=== PATIENT | male | born 1970 | race Caucasian/White ===

== ENCOUNTER 2021-12-02 06:53 | Emergency (ER) | payer OTHER | END 2021-12-02 07:55 | disposition home or self-care (01) | LOC: FB.ED 06:53 | DX: S81.832A Puncture wound without foreign body, left lower leg, initial encounter (principal); E66.01 Morbid (severe) obesity due to excess calories; E11.9 Type 2 diabetes mellitus without complications; Z79.82 Long term (current) use of aspirin; Z68.41 Body mass index [BMI] 40.0-44.9, adult; Z79.899 Other long term (current) drug therapy; W45.0XXA Nail entering through skin, initial encounter | CPT/HCPCS: 99283 ==